=== PATIENT | female | born 1985 | race Hispanic/Latino ===

== ENCOUNTER 2022-11-16 18:16 | Emergency (ER) | payer MEDICAID ==
[~2022-11-16] VITALS: Ht 152.4 cm; Wt 51.7 kg
[2022-11-16 18:21] VITALS: BP 115/65
[2022-11-16] MEDS ORDERED: ACETAMINOPHEN 500 MG TABLET PO ONE (19:00)
[2022-11-16] MEDS ORDERED: NIRM1TAB PO (20:24)
== END 2022-11-16 20:41 | disposition home or self-care (01) ==
LOC: EDH 18:16
DX: U07.1 COVID-19 (principal); Z98.890 Other specified postprocedural states; Z90.49 Acquired absence of other specified parts of digestive tract
CPT/HCPCS: 99283; 87635; 87880; 87804 ×2; C9803